=== PATIENT | male | born 1990 | race Two or more races ===

== ENCOUNTER 2017-04-07 01:32 | Emergency (ER) | payer OTHER ==
[~2017-04-07] VITALS: Ht 162.6 cm; Wt 86.2 kg
[2017-04-07 01:45] VITALS: BP 131/79
[2017-04-07] MEDS ORDERED: MUPI22OI2 TP (02:00)
--- NOTE | 2017-04-07 02:01 | PHYS DOC ---
Adult General Chief Complaint Chief Complaint: FINGER INJURY HPI HPI Patient is a 26 year old male who presents with complaint of left middle fingertip injury. 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 This took place approximately 30 minutes prior to arrival. Patient brought to the emergency department by a coworker for further evaluation. Patient denies any other injuries. Patient states that he is up-to-date on his tetanus immunization. Wound was irrigated with water and pressure was applied to stop bleeding prior to arrival. Review of Systems Review of Systems Constitutional: Denies fever or chills [] Eyes: Denies change in visual acuity, redness, or eye pain [] HENT: Denies nasal congestion or sore throat [] Musculoskeletal: Denies back pain or joint pain [] Integument: Left middle fingertip distally patient[] Neurologic: Denies headache, focal weakness or sensory changes [] Current Medications Current Medications Current Medications Medications (Trade) Dose Ordered Sig/Naveen Start Time Stop Time Status Last Admin Dose Admin Gelatin (Gelfoam Size 100) 1 each STK-MED ONCE 04/07/17 02:02 04/07/17 02:03 DC Allergies Allergies Allergies Coded Allergies Type Severity Reaction Last Updated Verified No Known Drug Allergies 04/07/17 No Physical Exam Physical Exam Constitutional: Alert, afebrile, no acute distress. [] HENT: Normocephalic, atraumatic, bilateral external ears normal, oropharynx moist, no oral exudates, nose normal. [] Skin: Warm, dry, 2 cm avulsive injury to left middle fingertip into dermal layer , no protruding bone present. [] Extremities: No tenderness, no cyanosis, no clubbing, ROM intact, no edema. [] Neurologic: Alert and oriented X 3, normal motor function, normal sensory function, no focal deficits noted. [] Current Patient Data Vital Signs Vital Signs Date Time Temp Pulse Resp B/P (MAP) Pulse Ox O2 Delivery O2 Flow Rate FiO2 04/07/17 01:45 99.2 83 20 131/79 (96) 98 Room Air 99.2 EKG EKG Not performed[] Radiology/Procedures Radiology/Procedures Not performed[] Course & Med Decision Making Course & Med Decision Making Pertinent Labs and Imaging studies reviewed. (See chart for details) Patient has a distal fingertip amputation/avulsion with no protrusion of bone. This does not involve the nailbed. The patient will require routine wound care. Patient's wound was cleaned with antibiotic soap and irrigated. Patient had gel form applied to the wound and had tube gauze dressing. Patient prescribed Bactroban antibiotic ointment and advised dressing changes daily. Advised use of water tight dressing while working around food. Advised follow-up in one week for reevaluation. Advised return to emergency department for any worsening symptoms. Patient was understanding and in agreement with treatment plan. Dragon Disclaimer Dragon Disclaimer This electronic medical record was generated, in whole or in part, using a voice recognition dictation system. Departure Departure Impression: Primary Impression: Fingertip avulsion Disposition: HOME, SELF-CARE Condition: IMPROVED Referrals: NO PCP (PCP) Patient Instructions: Fingertip Injuries and Amputations Additional Instructions: Change dressings at least once a day. Follow-up with your primary doctor in 1 week for reevaluation of your wound. Return to the emergency department for any worsening symptoms. Scripts Mupirocin (MUPIROCIN OINTMENT) 22 Gm Oint...g. 1 EVELYN TP DAILY for WOUND CARE, #1 TUBE Prov: ELDON MARSHALL MD 04/07/17 Problem Qualifiers Primary Impression: Fingertip avulsion Encounter type: initial encounter Qualified Codes: S61.209A - Unspecified open wound of unspecified finger without damage to nail, initial encounter ELDON MARSHALL MD Apr 07, 2017 02:01
[2017-04-07] MEDS ORDERED: GELATIN SPONGE SIZE 100. ONE (02:02)
== END 2017-04-07 02:16 | disposition home or self-care (01) ==
LOC: ER 01:32
DX: S61.303A Unspecified open wound of left middle finger with damage to nail, initial encounter (principal); W26.0XXA Contact with knife, initial encounter; Y93.G3 Activity, cooking and baking; Y99.8 Other external cause status; Y92.511 Restaurant or cafe as the place of occurrence of the external cause
CPT/HCPCS: 99283